=== PATIENT | male | born 1940 | race Caucasian/White ===

== ENCOUNTER 2017-07-16 08:30 | Emergency (ER) | payer OTHER ==
[~2017-07-16] VITALS: Ht 160 cm; Wt 66.8 kg
[2017-07-16 08:32] VITALS: BP 186/74; PULSE 58; RESP 16; TEMP 97.8; O2SAT 98
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
[2017-07-16] MEDS ORDERED: bp med (09:03)
[2017-07-16] MEDS ORDERED: ASPI81CH CHEW (09:03)
[2017-07-16] MEDS ORDERED: cholesterol med (09:03)
== END 2017-07-16 09:27 | disposition home or self-care (01) ==
LOC: NEPC 08:30
DX: G89.18 Other acute postprocedural pain (principal); Z72.0 Tobacco use; Z98.890 Other specified postprocedural states
CPT/HCPCS: 99281

== ENCOUNTER 2018-07-29 10:29 | Inpatient (IN) ==
[2018-07-29] MEDS ORDERED: Sodium Chlor 0.9% Inj 500 ML IV.CONT ONE (11:15)
[2018-07-29] MEDS ORDERED: Chlorhexidine Gluconate 2% 1 Pack (2 Cloths) TOPICAL ONE (11:15)
[2018-07-29] MEDS ORDERED: Metoprolol Tartrate 25 MG Tablet PO ONE (11:15)
--- NOTE | 2018-07-29 11:18 | P.HPUP ---
The Pre-Admit History and Physical Examination regarding the above named patient was reviewed (including, but not limited to, vital signs, heart, lungs, co-morbid conditions), and upon re-examination it is noted that: the patient's condition has not significantly changed since the last examination.
[2018-07-29] MEDS ORDERED: Sodium Chloride 0.9% 2 ML Flush PRN IV.FLUSH (11:19)
[2018-07-29 11:29] LABS: Baso % (Auto) 0.6 % (0.0-2.0); Eos # (Auto) 0.1 th/mm3 (0.0-0.4); Hematocrit 37.5 % (39.0-51.0); Hemoglobin 12.9 gm/dL (13.0-17.0); Lymph # (Auto) 0.6 th/mm3 (1.0-4.8); Lymph % (Auto) 9.6 % (9.0-44.0); Mean Corpuscular HGB Conc 34.3 % (32.0-36.0); Mean Corpuscular Hemoglobin 34.8 pg (27.0-34.0); Mean Corpuscular Volume 101.4 fL (80.0-100.0); Mono # (Auto) 0.7 th/mm3 (0.0-0.9); Mono % (Auto) 10.5 % (0.0-8.0); Neut # (Auto) 5.3 th/mm3 (1.8-7.7); Neut % (Auto) 78.3 % (16.0-70.0); Platelet Count 260 th/mm3 (150-450); Red Cell Distribution Width 18.2 % (11.6-17.2); White Blood Count 6.8 th/mm3 (4.0-11.0)
[2018-07-29 11:37] LABS: Bilirubin,Urine Negative (Negative); Clarity,Urine Clear (Clear); Color,Urine Yellow (Yellw/Straw); Glucose,Urine (UA) Negative (Negative); Hyaline Casts,Urine 3 /lpf (0-3); Leukocyte Esterase,Urine Trace (Negative); Nitrite,Urine Negative (Negative); Specific Gravity,Urine 1.005 (1.002-1.035)
[2018-07-29 11:50] LABS: INR 1.1 Ratio
--- NOTE | 2018-07-29 11:50 | XR ---
EXAM DATE: 07/29/2018 12:00 AM EDT AGE/SEX: 77 years / Male INDICATIONS: Evaluate for pneumonia, pneumothorax, and communicable diseases. Pre-op colon resection . Patient states no chest complaints. CLINICAL DATA: This is the patient's initial encounter. Patient reports that signs and symptoms have been present for 1 day and indicates a pain score of 0/10. MEDICAL/SURGICAL HISTORY: None. None. COMPARISON: No prior exams available for comparison. FINDINGS: A single AP view of the chest demonstrates the lungs to be symmetrically aerated without evidence of mass, infiltrate or effusion. The cardiomediastinal contours are unremarkable. Osseous structures a re intact. CONCLUSION: Negative for an acute process Electronically signed by: Rajan Byrd MD 07/29/2018 11:49 AM EDT
[2018-07-29 11:53] LABS: Prothrombin Time 10.7 sec (9.8-11.6)
[2018-07-29 11:57] LABS: Alanine Aminotransferase 36 U/L (12-78)
[2018-07-29 11:59] LABS: Alkaline Phosphatase 65 U/L (45-117); Total Protein 7.6 g/dL (6.4-8.2)
[2018-07-29 12:08] LABS: Albumin 3.9 g/dL (3.4-5.0); Anion Gap 13 meq/L (5-15); Aspartate Aminotransferase 32 U/L (15-37); Blood Urea Nitrogen 8 mg/dL (7-18); Calcium 8.8 mg/dL (8.5-10.1); Carbon Dioxide 19.4 meq/L (21.0-32.0); Chloride 103 meq/L (98-107); Glomerular Filtration Rate Greater Than 89 mL/min (>89); Glucose,Random 108 mg/dL (74-106); Sodium 135 meq/L (136-145)
[2018-07-29 12:10] LABS: Potassium 4.2 meq/L (3.5-5.1)
[2018-07-29] MEDS: Dextrose 5%/NaCl 0.9% Inj 1,000 ML IV.CONT SCH (12:29)
[2018-07-29] MEDS ORDERED: Lidocaine PF 1% Inj 5 ML Syringe OTHER ONE (12:45)
[2018-07-29] MEDS ORDERED: Bupivacaine PF 0.5% Inj 30 ML Vial ONE ×4 (12:57→13:05)
[2018-07-29] MEDS ORDERED: Sugammadex Inj 200 MG/2 ML Vial IV.PUSH ONE (14:54)
[2018-07-29] MEDS ORDERED: fentaNYL Citrate Inj 100 MCG/2 ML Ampul ONE ×3 (14:55)
[2018-07-29] MEDS ORDERED: Potassium Chlor 20 mEq Premix 20 MEQ/100 ML PIGGYBACK IV.SIG PRN (15:12)
[2018-07-29] MEDS ORDERED: Potassium Chlor 40 mEq Premix 40 MEQ/100 ML PIGGYBACK IV.SIG PRN (15:12)
[2018-07-29] MEDS ORDERED: Ketorolac Inj 30 MG/ML (IVP) Vial IV.PUSH PRN (15:12)
[2018-07-29] MEDS ORDERED: Acetaminophen 325 MG Tablet PO PRN (15:12)
[2018-07-29] MEDS ORDERED: Naloxone Inj 0.4 MG/ML Vial IV.PUSH PRN (15:19)
[2018-07-29] MEDS: Morphine Inj 30 MG/30 ML PCA.VIAL PCA PRN (15:40)
[2018-07-29] MEDS: KCL 20 mEq/D5W/NaCl 0.9% Inj 1,000 ML IV.CONT SCH ×2 (15:40→22:30)
[2018-07-29] MEDS ORDERED: KCL 20 mEq/D5W/NaCl 0.45% Inj 1,000 ML ONE (15:46)
[2018-07-29] MEDS ORDERED: Morphine Inj 30 MG/30 ML PCA.VIAL PCA ONE (15:46)
[2018-07-29] MEDS ORDERED: *morphine SULFATE 4 MG/ML PERIprocedure ONLY ONE ×2 (16:07→16:18)
[2018-07-29] MEDS ORDERED: HYDROmorphone PF Inj 2 MG/ML Vial ONE (16:56)
--- NOTE | 2018-07-29 20:48 | ECG ---
Date Performed: 07/29/2018 Time Performed: 11:18:13 PTAGE: 77 years EKG: Sinus rhythm WITH OCCASIONAL SUPRAVENTRICULAR PREMATURE COMPLEXES RIGHT BUNDLE BRANCH BLOCK ABNORMAL ECG NO PREVIOUS TRACING DOCTOR: Zeke Hermosillo Interpretating Date/Time 07/29/2018 20:47:44
[2018-07-29] MEDS ORDERED: Sodium Chloride 0.9% 2 ML Flush BID IV.FLUSH SCH (21:00)
[2018-07-30] MEDS: Dextrose 5%/NaCl 0.9% Inj 1,000 ML IV.CONT SCH ×4 (02:49→19:59)
[2018-07-30] MEDS: KCL 20 mEq/D5W/NaCl 0.9% Inj 1,000 ML IV.CONT SCH ×3 (03:13→20:28)
[2018-07-30 04:23] LABS: Hemoglobin 12.8 gm/dL (13.0-17.0); Lymph # (Auto) 0.3 th/mm3 (1.0-4.8); Lymph % (Auto) 2.9 % (9.0-44.0); Mean Corpuscular HGB Conc 33.7 % (32.0-36.0); Mean Corpuscular Hemoglobin 34.5 pg (27.0-34.0); Mean Corpuscular Volume 102.3 fL (80.0-100.0); Mean Platelet Volume 7.8 fL (7.0-11.0); Mono # (Auto) 0.6 th/mm3 (0.0-0.9); Mono % (Auto) 6.2 % (0.0-8.0); Neut # (Auto) 8.4 th/mm3 (1.8-7.7); Neut % (Auto) 90.9 % (16.0-70.0); Platelet Count 258 th/mm3 (150-450); Red Blood Count 3.71 mil/mm3 (4.50-5.90); Red Cell Distribution Width 18.5 % (11.6-17.2); White Blood Count 9.2 th/mm3 (4.0-11.0)
[2018-07-30 04:54] LABS: Calcium 7.2 mg/dL (8.5-10.1); Carbon Dioxide 23.9 meq/L (21.0-32.0); Potassium 4.6 meq/L (3.5-5.1)
[2018-07-30 05:09] LABS: Total Protein 7.1 g/dL (6.4-8.2)
[2018-07-30] MEDS: Lisinopril 10 MG Tablet PO SCH (08:30)
[2018-07-30] MEDS: Pantoprazole Inj 40 MG Vial IV.PUSH SCH (08:30)
--- NOTE | 2018-07-30 14:41 | P.PNWCN ---
Wound Care Nurse Consult Description: Consult for New Ostomy Teaching of stoma per Dr Zimmerman Communicated with: Patient Family Recommendation: Empty pouch when 1/2 full Change ostomy wafer and pouch every 3-5 days for ileostomy. Additional information: Patient seen on for ostomy assessment and teaching. Patient daughter at bedside as well. Bowel Diversion Stoma - Bowel Stoma Right Upper Abdomen Stoma Edema: Yes Stoma Appearance: Protruding, Round (pink, moist with mucus) Loop Supporting Raymond: No Collection Device: Two-piece, Moldable Wafer Wafer Size: 2 1/4 Moldable Ada-Stomal Surrounding Tissue Sensation Description: No Symptoms - Additional Information Additional Information: Stoma is located on the right upper quadrant of abdomen. Stoma is pink, moist, mucus present, protruding, appears to be round. There is a 2 piece open ended transparent pouch and moldable wafer in place and without leaks. ~5-10ml of serosang post op drainage noted in pouch that was not emptied at this time. Peristomal skin and mucocutaneous junction is not visualized at this time due to intact appliance. Education was given on skin care, changing appliance, supplies, emptying pouch, stoma appearance, output, diet, and when to call physician/go to emergency room. Consent obtained for starter kit to be sent out 2 day air via [employer] to arrive to patient home on Friday08/03/18. Supplies ordered for patient to go home with at discharge. Patient will need a prescription prior to discharge to obtain supplies via mail.
[2018-07-30] MEDS: Morphine Inj 30 MG/30 ML PCA.VIAL PCA PRN ×2 (19:50→20:29)
--- NOTE | 2018-07-30 22:00 | P.PNCS ---
Subjective Colorectal Surgery Post Op Day #: 1 Interval history: afebrile, VSS UO good CAYETANO serous Objective Result Diagrams: 07/30/18 03:39 07/30/18 03:39 Objective Remarks: PE alert Abd - soft, stoma pink, wound dry Assessment and Plan - Plan Imp: stable post-op OOB decr IVF tx to floor
[2018-07-31] MEDS: KCL 20 mEq/D5W/NaCl 0.9% Inj 1,000 ML IV.CONT SCH ×4 (04:16→19:57)
[2018-07-31] MEDS: Dextrose 5%/NaCl 0.9% Inj 1,000 ML IV.CONT SCH ×2 (04:17→13:09)
[2018-07-31 05:12] LABS: Baso % (Auto) 0.2 % (0.0-2.0); Hematocrit 33.4 % (39.0-51.0); Hemoglobin 11.1 gm/dL (13.0-17.0); Lymph # (Auto) 0.4 th/mm3 (1.0-4.8); Lymph % (Auto) 3.9 % (9.0-44.0); Mean Corpuscular HGB Conc 33.3 % (32.0-36.0); Mean Corpuscular Hemoglobin 34.7 pg (27.0-34.0); Mean Corpuscular Volume 104.1 fL (80.0-100.0); Mean Platelet Volume 8.2 fL (7.0-11.0); Mono # (Auto) 0.9 th/mm3 (0.0-0.9); Mono % (Auto) 9.4 % (0.0-8.0); Neut # (Auto) 8.6 th/mm3 (1.8-7.7); Neut % (Auto) 86.5 % (16.0-70.0); Platelet Count 229 th/mm3 (150-450); Red Cell Distribution Width 18.8 % (11.6-17.2); White Blood Count 9.9 th/mm3 (4.0-11.0)
[2018-07-31 05:54] LABS: Anion Gap 10 meq/L (5-15); Blood Urea Nitrogen 6 mg/dL (7-18); Calcium 7.3 mg/dL (8.5-10.1); Carbon Dioxide 25.5 meq/L (21.0-32.0); Chloride 113 meq/L (98-107); Glomerular Filtration Rate Greater Than 89 mL/min (>89); Glucose,Random 104 mg/dL (74-106); Potassium 4.5 meq/L (3.5-5.1); Sodium 148 meq/L (136-145)
[2018-07-31 06:10] LABS: Total Protein 5.5 g/dL (6.4-8.2)
[2018-07-31] MEDS: Lisinopril 10 MG Tablet PO SCH (08:52)
[2018-07-31] MEDS: Pantoprazole Inj 40 MG Vial IV.PUSH SCH (08:52)
--- NOTE | 2018-07-31 15:11 | P.PNWCN ---
Wound Care Nurse Consult Description: Consult for New Ostomy Teaching of stoma per Dr Zimmerman Communicated with: Patient RN Message left for Dr Zimmerman via [employer] Recommendation: Empty pouch when 1/2 full Change ostomy wafer and pouch every 3-5 days for ileostomy. Additional information: Patient seen on for ostomy assessment and reinforcement of teaching. Starter kit sent out yesterday via 2 day mail. Script on chart for ileostomy supplies. Patient is to be emptying his pouch. Wafer is intact and no output is noted in pouch. RN notified of no output >24 hours. Bowel Diversion Stoma - Bowel Stoma Right Upper Abdomen Stoma Edema: Yes Stoma Appearance: Protruding, Round Collection Device: Two-piece, Moldable Wafer Wafer Size: 2 1/4 Moldable - Additional Information Additional Information: Stoma is located on the right upper quadrant of abdomen. Stoma is pink, moist, mucus present, protruding, appears to be round. There is a 2 piece open ended transparent pouch and moldable wafer in place and without leaks. ~5-10ml of serosang post op drainage noted in pouch that was not emptied at this time. Peristomal skin and mucocutaneous junction is not visualized at this time due to intact appliance. Education was given on skin care, changing appliance, supplies, emptying pouch, stoma appearance, output, diet, and when to call physician/go to emergency room. Starter kit sent out 2 day air via [email or web address] to arrive to patient home on Friday08/03/18. Supplies ordered for patient to go home with at discharge. Script left on chart today.
--- NOTE | 2018-07-31 16:02 | P.DCO ---
- Diagnosis (1) Rectal cancer Status: Acute - Physical Therapy Order: Evaluate and treat, Improve ambulation, Strength and gait training - Home Health Nursing Order: Medical education, Signs/symptoms of disease process, Wound care and dressing changes Instructions: stoma teaching - Case Management Consult Yes - Certification I have seen patient Jovany Ya on 07/31/18. My clinical findings support the need for the requested home health care services because: Limited mobility due to disease progression, Deconditioned with increased weakness, High risk of falls I certify that my clinical findings support that this patient is homebound because: Post-op weakness, Unsafe to leave home unassisted
--- NOTE | 2018-07-31 18:03 | P.PNCS ---
Subjective Colorectal Surgery Post Op Day #: 2 Interval history: afebrile, VSS UO good skylar PO stoma functioning CAYETANO less Objective Result Diagrams: 07/31/18 03:45 07/31/18 03:45 Objective Remarks: PE alert Abd - soft, stoma pink, wound dry CAYETANO serous Assessment and Plan - Assessment (1) Rectal cancer Code(s): C20 - Malignant neoplasm of rectum Status: Acute - Plan Imp: OOB decr IVF adv diet Path - N1 tumor
--- NOTE | 2018-07-31 19:02 | MP ---
cc: Trey Zimmerman MD DATE OF OPERATION: 07/29/2018 PREOPERATIVE DIAGNOSIS: Rectal cancer, status post radiation and chemotherapy. PROCEDURE: Exploratory laparotomy with proctosigmoidectomy, low pelvic anastomosis, diverting ileostomy and omental flap. POSTOPERATIVE DIAGNOSIS: Rectal cancer, status post radiation and chemotherapy. SURGEON: Trey Zimmerman MD SURGEON: Isma Sandhu MD PROCEDURE: The patient was placed in the supine position. After adequate general anesthesia, his legs were placed in universal stirrups and supported appropriately. The abdomen and perineum were then prepped with Betadine solution and draped in the usual sterile fashion. With Dr. Sandhu's assistance, the abdomen was opened through an infraumbilical transverse incision, dividing the rectus muscles with electrocautery. Exploration revealed induration and thickening consistent with this tumor, right around the peritoneal reflection in the cul-de-sac. There was some serosal puckering. The proximal colon was palpated and felt to be pretty unremarkable. The small bowel was run from ligament of Treitz down to the ileocecal valve and felt to be normal. Liver had no palpable masses. The gallbladder was unremarkable. The stomach and duodenum were normal. The great vessels were of normal caliber and only slightly calcified. First, the sigmoid colon was mobilized medially by dividing along the white line of Toldt. The left ureter was identified and carefully preserved. Dissection then proceeded up the left gutter, freeing the left colon off the retroperitoneum, taking down the splenic flexure, entering the lesser sac and take the gastrocolic omentum off the transverse colon. The right retroperitoneal space was then opened and the bowel dissected off the presacral fascia, preserving the presacral nerves. Pedicle for the superior hemorrhoidal vessels identified and divided between Kellys, obtaining hemostasis with Vicryl ties. Similar dissection was performed around the left colic vessels for full left mobilization. Dissection then proceeded down to the pelvis, mobilizing the bowel off the presacral fascia to the pelvic floor. The cul-de-sac was opened and the bowel dissected off the seminal vesicles and prostate, the prostatic capsule, for full mobilization down toward the pelvic floor at a point below the palpable tumor, the mesorectum was divided using electrocautery and the bowel finally divided using a contour stapling device. The bowel was then sized to reach the rectal pouch without tension and with good blood supply dividing the marginal artery at the appropriate point. The bowel was divided between a pursestring suture device and a Torie clamp. The end of the bowel was sized to accept an EEA stapling anvil and this was secured with the pursestring suture. Dr. Azar inserted the EEA stapling instrument transanally under direct vision and it was brought up to the rectal pouch and the trocar advanced. The stapler was then reassembled the bowel aligned properly. The stapled closed and fired. Upon withdrawal, 2 complete donuts of tissue were seen and these were sent for pathological inspection. Gentle insufflation confirmed an airtight anastomosis. The abdomen was then irrigated copiously with normal saline. Adequate hemostasis achieved at all sites. A suitable piece of terminal ileum was chosen for a diverting loop ileostomy in an avascular plane created in the mesentery. The distal end was stapled with a TA 60 staple line. Circular stab wound was then created in the right upper quadrant and the loop brought out through the stab wound without tension and with good blood supply. Fer-Hayden drain placed down into the pelvis and brought up through a stab wound in the right lower quadrant and secured to the skin with a nylon suture. The omentum was passed down the left gutter, wrapped around the anastomosis. A transverse incision was then closed anatomically in 2 layers using #1 PDS sutures to reapproximate the respective fascial layers. The ON-Q catheters were placed into the rectus sheaths on both sides and brought up through subcutaneous tunnels above the transverse incision. Subcutaneous tissues irrigated and the skin closed with a running subcuticular Vicryl suture. Wound area washed with normal saline and dried. Sterile dressing of Telfa and gauze applied. Finally, the ileostomy was matured by creating a transverse enterotomy and maturing the proximal limb with a row of interrupted chromic catgut sutures around the circumference. At completion, the stoma did appear to be viable and was patent to the fascial level. A sterile ileostomy appliance fitted over the new stoma. The patient tolerated the procedure quite well and was brought to the recovery room in stable condition. Sponge and needle counts were correct at the end of the procedure. MD RICKI Gaines/rudy , 06:09 PM , 06:19 PM
[2018-07-31] MEDS: Morphine Inj 30 MG/30 ML PCA.VIAL PCA PRN (22:09)
[2018-08-01] MEDS: KCL 20 mEq/D5W/NaCl 0.9% Inj 1,000 ML IV.CONT SCH ×3 (05:55→21:21)
[2018-08-01] MEDS: Pantoprazole Inj 40 MG Vial IV.PUSH SCH (08:56)
[2018-08-01] MEDS: Lisinopril 10 MG Tablet PO SCH (08:56)
--- NOTE | 2018-08-01 12:04 | P.PN ---
Subjective Interval history: POD#3 s/p LAR, ileostomy comfortable, wants to go home Physical Exam Vital signs: Vital Signs 07/31/18 16:00 07/31/18 17:46 07/31/18 19:00 Temperature 97.6 F 98.2 F Pulse Rate 69 83 Respiratory Rate 18 16 Blood Pressure 156/67 H 160/70 H Pulse Oximetry 95 95 96 08/01/18 00:00 08/01/18 03:00 08/01/18 07:00 Temperature 98.4 F 97.4 F L Pulse Rate 80 68 Respiratory Rate 16 16 18 Blood Pressure 152/66 H 144/65 H Pulse Oximetry 94 L 95 08/01/18 11:00 Temperature Pulse Rate Respiratory Rate 18 Blood Pressure Pulse Oximetry Intake & Output 07/31/18 08/01/18 08/01/18 18:59 06:59 18:59 Intake Total 1000 / 1000 1790 / 1790 310 / 310 Output Total 980 / 980 1310 / 1310 50 / 50 Balance 20 / 20 480 / 480 260 / 260 Weight 67.1 kg Intake: IV 1000 / 1000 790 / 790 310 / 310 D5W/NS + KCL 20 mEq Inj 1,000 1000 / 1000 690 / 690 310 / 310 ML @ 75 mls/hr IV.CONT .[id number] [facility] Rx#:[id number] Oral 1000 / 1000 Output: Urine 950 / 950 1100 / 1100 Stool Amount (Stoma) 50 / 50 Right Upper Abdomen 50 / 50 Wound Drainage 30 / 30 160 / 160 50 / 50 # 1 Right Lower Abdomen CAYETANO 30 / 30 160 / 160 50 / 50 Drain - Routine Abdominal Exam Comments: soft, mild distension, tender wounds clean ostomy pink, stool in bag CAYETANO serosanguinous - Urinary Catheter Management Indwelling Urethral Catheter Cath placed during this visit: yes Reason for continuing: Hourly intake/output Insertion date: 07/29/18 Results - Labs CBC & Chem 7: 07/31/18 03:45 07/31/18 03:45 Assessment and Plan - Assessment (1) Rectal cancer Code(s): C20 - Malignant neoplasm of rectum Status: Acute Plan: Advance diet d/c emerson check bmp home soon
[2018-08-02 05:04] LABS: Anion Gap 6 meq/L (5-15); Blood Urea Nitrogen 3 mg/dL (7-18); Calcium 8.6 mg/dL (8.5-10.1); Carbon Dioxide 26.8 meq/L (21.0-32.0); Chloride 111 meq/L (98-107); Glomerular Filtration Rate Greater Than 89 mL/min (>89); Glucose,Random 129 mg/dL (74-106); Potassium 3.7 meq/L (3.5-5.1); Sodium 144 meq/L (136-145)
[2018-08-02] MEDS: Lisinopril 10 MG Tablet PO SCH (08:09)
[2018-08-02] MEDS: Pantoprazole Inj 40 MG Vial IV.PUSH SCH (08:09)
--- NOTE | 2018-08-02 12:28 | P.PN ---
Subjective Interval history: POD#5 s/p LAR, ileostomy comfortable Physical Exam Vital signs: Vital Signs 08/01/18 15:00 08/01/18 20:00 08/02/18 00:00 Temperature 98.7 F 97.6 F 98.4 F Pulse Rate 68 77 76 Respiratory Rate 18 18 18 Blood Pressure 124/78 184/81 H 177/78 H Pulse Oximetry 99 100 97 08/02/18 04:00 Temperature 98.1 F Pulse Rate 66 Respiratory Rate 18 Blood Pressure 174/74 H Pulse Oximetry 96 Intake & Output 08/01/18 08/02/18 08/02/18 18:59 06:59 18:59 Intake Total 310 / 310 1000 / 1000 750 / 750 Output Total 450 / 450 1210 / 1210 Balance -140 / -140 -210 / -210 750 / 750 Weight 66.2 kg Intake: IV 310 / 310 1000 / 1000 750 / 750 D5W/NS + KCL 20 mEq Inj 1,000 310 / 310 1000 / 1000 750 / 750 ML @ 40 mls/hr IV.CONT .Q24H [facility] Rx#:[id number] Output: Urine 350 / 350 1100 / 1100 Stool 100 / 100 Wound Drainage 100 / 100 10 / 10 # 1 Right Lower Abdomen CAYETANO 100 / 100 10 / 10 Drain - Routine Abdominal Exam Comments: Abdomen soft, nondistended, tender Wound clean Stoma pink CAYETANO serous - Urinary Catheter Management Indwelling Urethral Catheter Cath placed during this visit: yes, but has since been removed by the nurse Reason for continuing: Hourly intake/output Insertion date: 07/29/18 Removal date: 08/01/18 Removal time: 16:00 Results - Labs CBC & Chem 7: 07/31/18 03:45 08/02/18 03:55 Laboratory Results - last 24 hr 08/02/18 03:55 Sodium 144 Potassium 3.7 Chloride 111 H Carbon Dioxide 26.8 Anion Gap 6 BUN 3 L Creatinine 0.56 L Estimated GFR Greater than 89 Random Glucose 129 H Calcium 8.6 Assessment and Plan - Assessment (1) Rectal cancer Code(s): C20 - Malignant neoplasm of rectum Status: Acute Plan: Doing well home soon
[2018-08-02] MEDS: KCL 20 mEq/D5W/NaCl 0.9% Inj 1,000 ML IV.CONT SCH (15:10)
[2018-08-03] MEDS: Lisinopril 10 MG Tablet PO SCH (10:04)
[2018-08-03] MEDS: Pantoprazole Inj 40 MG Vial IV.PUSH SCH (10:04)
[2018-08-03 12:12] VITALS: BP 194/85; PULSE 81; RESP 16; TEMP 97.8; O2SAT 94
--- NOTE | 2018-08-03 14:50 | P.PNWCN ---
Wound Care Nurse Consult Description: Consult for New Ostomy Teaching of stoma per Dr Zimmerman Communicated with: Patient Patient daughter at bedside DWAIN Reese Recommendation: Empty pouch when 1/2 full Change ostomy wafer and pouch every 3-5 days and PRN for leaks. Additional information: Patient seen on for ostomy assessment, teaching, and appliance change with demonstration to patient and daughter. Bowel Diversion Stoma - Bowel Stoma Right Upper Abdomen Stoma Edema: Yes Stoma Diameter: 33 (mm) Stoma Appearance: Protruding (pink, moist, functioning), Round Collection Device: Two-piece, Moldable Wafer Drainage Description: Soft, Liquid, Brown Wafer Size: 2 1/4 Moldable Stoma Care: Pouch and Wafer Changed, Skin Care Ada-Stomal Skin Appearance: Intact Ada-Stomal Surrounding Tissue Sensation Description: No Symptoms - Additional Information Additional Information: Stoma is located on the right upper quadrant of abdomen. Stoma is pink, moist, mucus present, protruding, round, functioning with soft brown stool. Mucocutaneous junction is intact with sutures noted circumferentially. There is a 2 piece open ended transparent pouch and moldable wafer in place and without leaks. 10ml of soft liquid brown stool noted in pouch that was emptied with removal of appliance. Using adhesive removal wipes the wafer was removed. Peristomal skin was cleansed with soft cloths and water only. Stoma was measured , 1 1/4". Peristomal skin was prepped using Cavilon skin barrier film. 2 1/4" moldable wafer and transparent open ended pouch was applied. Education was given on skin care, changing appliance, supplies, emptying pouch, stoma appearance, output, diet, and when to call physician/go to emergency room. Starter kit sent out 2 day air via [employer] arrived to patients home on 08/01/18. Supplies ordered for patient to go home with at discharge. Script left on chart. Patient and daughter state confidence in proper care of stoma. All questions and concerns were addressed at this time.
[2018-08-03] MEDS: KCL 20 mEq/D5W/NaCl 0.9% Inj 1,000 ML IV.CONT SCH (15:42)
--- NOTE | 2018-08-03 16:55 | P.PN ---
Subjective Interval history: POD#5 s/p LAR, ileostomy comfortable, ready to go home Physical Exam Vital signs: Vital Signs 08/02/18 19:00 08/02/18 20:00 08/02/18 23:00 Temperature 98.3 F Pulse Rate 65 Respiratory Rate 17 17 17 Blood Pressure 156/77 H Pulse Oximetry 97 08/03/18 00:00 08/03/18 03:00 08/03/18 07:00 Temperature 97.9 F Pulse Rate 60 Respiratory Rate 16 16 16 Blood Pressure 151/72 H Pulse Oximetry 98 08/03/18 08:00 08/03/18 11:42 08/03/18 12:00 Temperature 97.7 F 97.8 F Pulse Rate 62 81 Respiratory Rate 15 16 Blood Pressure 179/73 H 194/85 H Pulse Oximetry 95 96 94 L 08/03/18 13:05 Temperature Pulse Rate Respiratory Rate 16 Blood Pressure Pulse Oximetry Intake & Output 08/02/18 08/03/18 08/03/18 18:59 06:59 18:59 Intake Total 2049 0 / 0 1000 / 1000 Output Total 350 / 350 45 / 45 Balance 2049 -350 / -350 955 / 955 Weight 64.3 kg Intake: IV 750 / 750 0 / 0 1000 / 1000 D5W/NS + KCL 20 mEq Inj 1,000 750 / 750 0 / 0 1000 / 1000 ML @ 40 mls/hr IV.CONT .Q24H [facility] Rx#:[id number] Oral 1300 / 1300 Output: Stool 350 / 350 Wound Drainage 45 / 45 # 1 Right Lower Abdomen CAYETANO 45 / 45 Drain Other: # Voids 3 2 Date of Last Bowel Movement 08/03/18 - Routine Abdominal Exam Comments: abdomen soft, nondistended, tender stoma pink wound clean - Urinary Catheter Management Indwelling Urethral Catheter Cath placed during this visit: yes, but has since been removed by the nurse Reason for continuing: Hourly intake/output Insertion date: 07/29/18 Removal date: 08/01/18 Removal time: 16:00 Results - Labs CBC & Chem 7: 07/31/18 03:45 08/02/18 03:55 Assessment and Plan - Assessment (1) Rectal cancer Code(s): C20 - Malignant neoplasm of rectum Status: Acute Plan: Doing well home today
== END 2018-08-03 17:37 | disposition home health service (06) ==
LOC: HSDI 10:29 → HCPC 17:40 → N07 07-30 20:18
PROVIDERS: ADMIT Colon & Rectal Surgery; ATTEND Colon & Rectal Surgery